=== PATIENT | male | born 1980 | race Hispanic/Latino ===

== ENCOUNTER 2018-08-05 14:09 | Emergency (ER) | payer MEDICAID ==
--- NOTE | 2018-08-05 15:06 | Emergency Department Report ---
HPI - General Chief Complaint: Extremity Injury, Lower Time Seen by Provider: 08/05/18 14:32 - HPI HPI: This is a 37-year-old male who presents to ED complaining about right ankle/foot pain 1 day. Patient states that he gave not sustaining any injuries or trauma to the foot. Patient just states that it hurts. Patient states he is able to walk well without any problems. Patient describes pain as throbbing in nature. Patient does state that he has a history of hypertension and takes clonidine daily. ED Past Medical Hx - Past Medical History Previous Medical History?: Yes Additional medical history: Autism/brain damage. - Surgical History Past Surgical History?: No - Social History Smoking Status: Never Smoker Substance Use Type: None - Medications Home Medications: Home Medications Medication Instructions Recorded Confirmed Last Taken Type Ibuprofen [Motrin] 800 mg PO Q8HR #30 tablet 08/05/18 Unknown Rx ED Review of Systems ROS: Stated complaint: PAIN IN (R) LEG/ANKLE Other details as noted in HPI Comment: All other systems reviewed and negative Physical Exam - Physical Exam Vital Signs: Vital Signs 08/05/18 14:20 Temperature 98.6 F Pulse Rate 117 H Respiratory 20 Rate Blood Pressure 168/103 O2 Sat by Pulse 97 Oximetry Physical Exam: GENERAL: Alert and oriented x3, no apparent distress, Normal Gait, atraumatic. HEAD: Head is normocephalic and a-traumatic. LUNGS: Symetrical with respiration HEART: S1, S2 present, regular rate and rhythm without murmu EXTREMITIES/MUSCULOSKELETAL: No cyanosis, clubbing, rash, lesions or edema. Full ROM bilaterally. UE/LE Pulses 2+ bilaterally. LE and UE 5+ strength bilaterally, straight leg raise negative bilaterally NEUROLOGIC: The patient is cooperative with no focal neurologic deficits. Cranial nerves II through XII are grossly intact. SKIN: Warm and dry, No lesions, No ulceration or induration present. ED Course Vital Signs 08/05/18 14:20 Temperature 98.6 F Pulse Rate 117 H Respiratory 20 Rate Blood Pressure 168/103 O2 Sat by Pulse 97 Oximetry ED Medical Decision Making - Radiology Data Radiology results: report reviewed, image reviewed FINAL REPORT EXAM: XR ANKLE 3+V RT HISTORY: ankle/foot pain TECHNIQUE: AP, oblique and lateral radiographs of the left ankle. PRIORS: None. FINDINGS: No fracture. No dislocation. Normal mineralization. There is soft tissue swelling surrounding the left ankle. The ankle mortise is symmetric. IMPRESSION: Soft tissue swelling. No acute osseous abnormality. Transcribed By: MG Dictated By: EMANI LIU MD Electronically Authenticated By: EMANI LIU MD Signed Date/Time: 08/05/18 1609 - Medical Decision Making 37-year-old male presents with a right ankle sprain X-rays ordered , x-ray shows no acute abnormality impression positive for soft tissue swelling as reported above I discussed findings with the patient and big data lead was in the room as well. Blood pressure reduced so there was no need for blood pressure management. Right ankle was placed in an Abimael wrap. Patient able to ambulate without any problems Credit Risk Manager states that she will be taken into his primary care physician Critical care attestation.: If time is entered above; I have spent that time in minutes in the direct care of this critically ill patient, excluding procedure time. ED Disposition Clinical Impression: Right ankle strain Disposition: - TO HOME OR SELFCARE Is pt being admited?: No Does the pt Need Aspirin: No Condition: Stable Instructions: Muscle Strain (ED), Ankle Exercises (GEN) Additional Instructions: Make sure to follow up with the primary care physician as discussed. Take all your medications as you've been prescribed. If you have any worsening symptoms or develop new symptoms please return to ED immediately. Prescriptions: Ibuprofen [Motrin] 800 mg PO Q8HR #30 tablet Referrals: PRIMARY MD ELIZABETH [Primary Care Provider] - 3-5 Days EBONIE KATHLEEN MD [Referring] - 3-5 Days FREDERIC KANG MD [Referring] - 3-5 Days Forms: Work/School Release Form(ED) Time of Disposition: 15:52
[2018-08-05 15:58] VITALS: BP 118/84
--- NOTE | 2018-08-05 16:06 | XRay Report ---
FINAL REPORT EXAM: XR ANKLE 3+V RT HISTORY: ankle/foot pain TECHNIQUE: AP, oblique and lateral radiographs of the left ankle. PRIORS: None. FINDINGS: No fracture. No dislocation. Normal mineralization. There is soft tissue swelling surrounding the left ankle. The ankle mortise is symmetric. IMPRESSION: Soft tissue swelling. No acute osseous abnormality.
== END 2018-08-05 16:49 | disposition home or self-care (01) ==
LOC: ED 14:09
DX: S96.911A Strain of unspecified muscle and tendon at ankle and foot level, right foot, initial encounter (principal); X58.XXXA Exposure to other specified factors, initial encounter; Y93.89 Activity, other specified; Y92.89 Other specified places as the place of occurrence of the external cause; Y99.8 Other external cause status
CPT/HCPCS: 99283